=== PATIENT | male | born 2000 | race Asian ===

== ENCOUNTER 2024-06-17 02:51 | Emergency (ER) | payer SELFPAY ==
[~2024-06-17] VITALS: Ht 182.9 cm; Wt 81.6 kg
[2024-06-17] MEDS ORDERED: ACETAMINOPHEN 325 MG TABLET ONE (03:16)
[2024-06-17] MEDS: ACETAMINOPHEN 325 MG TABLET PO ONE (03:20)
[2024-06-17 03:39] VITALS: BP 128/83; TEMP 98; O2SAT 100
== END 2024-06-17 03:40 | disposition left against medical advice (07) ==
LOC: ER 03:01
DX: S09.90XA Unspecified injury of head, initial encounter (principal); Y92.410 Unspecified street and highway as the place of occurrence of the external cause; Y93.01 Activity, walking, marching and hiking